=== PATIENT | male | born 1950 | race Hispanic/Latino ===

== ENCOUNTER 2024-09-28 10:13 | Emergency (ER) | payer OTHER, MEDICARE ==
[~2024-09-28] VITALS: Ht 165.1 cm; Wt 56.7 kg
[~2024-09-28 10:13] MED LIST: ATOR10 PO; FERR324T23 PO; FOLI0.8T41 PO; GABA-529 PO; LEVO125T11 PO; LOSA100T59 PO; MIRT-22 PO; MIRT-73 PO; PANT40GR PO
--- NOTE | 2024-09-28 10:21 | ERN ---
General Chief Complaint: Skin Rash/Abscess Stated Complaint: PEG TUBE PROBLEM Time Seen by MD: 10:17 Source: patient, family History of Present Illness Initial Comments PATIENT IS A 74-YEAR-OLD MALE COMING IN TO BE EVALUATED FOR ABDOMINAL DISCOMFORT. PATIENT HAS A PLATELET TUBE IN PLACE AND STATES THAT HE HAS BEEN HAVING THIS DISCOMFORT AROUND THE DECIDED TO COME IN FOR FURTHER EVALUATION. Allergies: Coded Allergies: No Known Allergies (Unverified Allergy, Unknown, 02/19/24) Home Meds Active Scripts Pantoprazole Sodium (Pantoprazole Sodium) 40 Mg , 40 MG PO BID, #60 PA CK Prov:CLEMENCIA HAWTHORNE MD 07/20/24 Reported Medications Mirtazapine (Mirtazapine) 15 Mg Tablet, 1 TAB PO HS for 30 Days, #30 TAB 0 Refills 07/16/24 Losartan Potassium (Losartan Potassium) 100 Mg Tablet, 100 MG PO HS, TAB 07/16/24 Ferrous Gluconate (Ferrous Gluconate) 324 Mg (37.5 Mg Iron) Tablet, 324 MG PO BID, TAB 02/21/24 Folic Acid/Vit Bcomp,C (Renal Vitamin Tablet) 0.8 Mg Tablet, 1 TAB PO DAILY, TAB 02/21/24 Gabapentin (Gabapentin) 100 Mg Capsule, 300 MG PO BID, CAP 02/21/24 Mirtazapine (Mirtazapine) 30 Mg Tab.rapdis, 30 MG PO PM, TAB 02/21/24 Atorvastatin Calcium (LIPITOR) 20 Mg Tab, 20 MG PO HS, TAB 02/21/24 Levothyroxine Sodium (Levothyroxine Sodium) 125 Mcg Tablet, 125 MCG PO DAILY, TAB 02/21/24 Past Medical History Past Medical History: Cancer, Hypertension Medical History Other: NEUROPATHY, RENAL, NASOPHARYNX CA Past Surgical History: Other Surgical History Other: R SHOULDER, KIDNEY SX ROS Dictation CONSTITUTIONAL: NO CHILLS, NO FEVER, NO WEAKNESS, NO DIAPHORESIS, NO MALAISE. HEAD/FACE: NO SIGNS OF TRAUMA. EENT: NO EYE PAIN, NO BLURRED VISION, NO TEARING, NO DOUBLE VISION, NO EAR PAIN, NO EAR DISCHARGE, NO NOSE PAIN, NO NASAL CONGESTION, NO THROAT PAIN, NO THROAT SWELLING, NO MOUTH PAIN. RESPIRATORY: NO COUGH, NO ORTHOPNEA, NO SOB, NO STRIDOR, NO WHEEZING. CARDIOVASCULAR: NO CHEST PAIN, NO EDEMA, NO PALPITATIONS, NO SYNCOPE. GASTROINTESTINAL/ABDOMINAL: ABDOMINAL PAIN, NO CONSTIPATION, NO DIARRHEA, NO NAUSEA, NO VOMITING. GENITOURINARY: NO ABNORMAL DISCHARGE, NO DYSURIA, NO FREQUENT URINATION, NO HEMATURIA. NO COMPLAINTS OF PAIN IN THE GENITALS. MUSCULOSKELETAL: NO BACK PAIN, NO GOUT, NO JOINT PAIN, NO JOINT SWELLING, NO MUSCLE PAIN, NO MUSCLE STIFFNESS, NO NECK PAIN. INTEGUMENTARY: NO CHANGE IN COLOR, NO CHANGE IN HAIR/NAILS, NO DRYNESS, NO LESION, NO LUMPS, NO RASH. NEUROLOGICAL/PSYCH: NO ANXIETY, NOT DEPRESSED, NO EMOTIONAL PROBLEM, NO HEADACHE, NO NUMBNESS, NO PRE-EXISTING DEFICIT, NO HISTORY OF SEIZURES, NO TREMORS, NO WEAKNESS. HEMATOLOGIC/LYMPHATIC: NOT ANEMIC, NO HISTORY OF BLOOD CLOTS, NO APPARENT BLEEDING, NO BRUISING, GLANDS NOT SWOLLEN. ALL SYSTEMS NEGATIVE, EXCEPT NOTED. Physical Exam Physical Exam Dictation VITAL SIGNS: REVIEWED. GENERAL APPEARANCE: ALERT, ORIENTED X3, NO ACUTE DISTRESS, OBESE. HEAD AND FACE: NON-TRAUMATIC. EYES: PERRL, PINK CONJUNCTIVAS, EYELID NO TRAUMA, ANTERIOR CHAMBER CLEAR. EARS: PINNAS INTACT AND NO SIGNS OF TRAUMA OR ERYTHEMA. EAR CANALS CLEAR AND NO DISCHARGE. TMS NO ERYTHEMA. NOSE: NO DISCHARGE, NO BLEEDING. OROPHARYNX: MOUTH NORMAL, TEETH NO CARIES, TONGUE PINK. PHARYNX CLEAR, NO ERYTHEMA. TONSILS NO EXUDATES, NO ABSCESSES NOTED. MUCOUS MEMBRANE MOIST. NECK: SUPPLE, NON-TENDER, NO THYROMEGALY, NO MASSES, NO JVD, NO BRUITS. BREAST: DEFERRED. CHEST: NO TENDERNESS, NO CREPITUS, NO PARADOXICAL MOVEMENT, NO RETRACTIONS. LUNGS: CLEAR, WELL-VENTILATED, SYMMETRIC, NO RALES, NO WHEEZING, NO RHONCHI, NO STRIDOR, GOOD BREATH SOUNDS BILATERALLY. HEART: REGULAR RATE, REGULAR RHYTHM, NO MURMUR, NO GALLOPS. VASCULAR: NO PERIPHERAL EDEMA. ABDOMEN: SOFT, POSITIVE BOWEL SOUNDS, NONDISTENDED, NO GUARDING, TENDER, PEG TUBE IN PLACE MILD ERYTHEMA AT THE BASE, NO REBOUND, NO MASSES NO HEPATOMEGALY, NO SPLENOMEGALY, NO RICE'S SIGN, NO HERNIAS. RECTAL: DEFERRED. GENITAL: DEFERRED. NEUROLOGICAL: NORMAL SPEECH, GROSS MOTOR FUNCTION INTACT, GROSS SENSORY FUNCTION INTACT. MUSCULOSKELETAL: NECK NONTENDER, FULL RANGE OF MOTION, BACK NONTENDER, FULL RANGE OF MOTION. EXTREMITIES: NONTENDER, FULL RANGE OF MOTION. SKIN: COLOR PINK, DRY, NO TURGOR, NO RASH, NO LACERATIONS, NO ABRASIONS, NO CONTUSIONS. LYMPHATICS: DEFERRED. Results Laboratory and Microbiology Labs Reviewed?: Yes EKG/XRAY/US/CT/MRI CT Scan Comment [facility] [address] [place] [address] IMAGING REPORT Signed PATIENT: ISACC MORENO MR#: [id number] : 1950 SEX: M AGE: 74 LOCATION: [facility] ORDER 1030 STATUS: REG REPORT#: [id number] SERVICE 1028 REASON: PEJ TUBE PAIN ORDERING PHYSICIAN: EZRA ROME MD PROCEDURE: CHESTAB WO - CT CHEST ABDOMEN W/O CONTRAST CT CHEST ABDOMEN W/O CONTRAST HISTORY: PEG tube, pain COMPARISON: 07/16/2024 TECHNIQUE: Multiple sequential axial images of the chest were obtained from the thoracic inlet through upper abdomen. Patient was not given contrast through intravenous route. FINDINGS: There is no evidence of pulmonary nodule or parenchymal disease. Mild interstitial fibrotic changes are seen. No pleural effusion or pericardial effusion is seen. There is no evidence of pneumothorax. There are normal size mediastinal and hilar lymph nodes. The heart is not enlarged. Coronary artery calcifications are seen. Degenerative changes of the thoracolumbar spine are present. There is no evidence of adrenal nodule. IMPRESSION: 1. No evidence of pulmonary nodule or effusion is seen. CT CHEST ABDOMEN W/O CONTRAST HISTORY: Pain COMPARISON: None TECHNIQUE: Multiple sequential axial images of the abdomen were obtained from the dome of the diaphragm through iliac crests. Patient was not given contrast through intravenous route. Oral contrast was not given. FINDINGS: No pleural effusion is seen bilaterally. There is no evidence of parenchymal disease or pulmonary nodule of the visualized lower lungs. Degenerative changes are seen of the thoracolumbar spine. Gastrostomy tube is seen with distal tip in the stomach. The liver, spleen, adrenal glands and pancreas are unremarkable. There is no evidence of hydronephrosis bilaterally. Renal vascular calcifications are seen. No evidence of renal stone is seen. Fecal material is seen in the colon. There are normal-sized retroperitoneal and mesenteric lymph nodes. No ascites is seen. Atherosclerotic changes are present. Mild small bowel dilatation is seen. IMPRESSION: 1. Gastrostomy tube is seen with distal tip in the stomach. Mild small bowel dilatation with fluid-filled may be related to enteritis. CT was performed with one or more following dose reduction techniques: automated exposure control, adjustment of the mA and kv according to patient's size, or use of a iterative reconstruction technique. DICTATED BY: KANCHAN MAGANA MD DATE: 09/28/24 1145 ELECTRONICALLY SIGNED BY: KANCHAN MAGANA MD DATE: 09/28/24 1204 [facility] MDM: DIFFERENTIAL DIAGNOSIS: PEG TUBE PROBLEM, LESION, ABSCESS, PATIENT IS A 74-YEAR-OLD MALE COMING IN TO BE EVALUATED FOR ABDOMINAL DISCOMFORT AFTER HE STATES THAT IT WAS PCP A PA PULLED ON HIS PEG TUBE AND POPPED IT OUT. HE WAS THAT HE HAS BEEN HAVING DISCOMFORT SINCE THEN WAS WORRIED FOR INFECTION CAME IN TO BE EVALUATED. ON PHYSICAL EXAM MILD ERYTHEMA AROUND THE STOMA OF THE PEG TUBE PLACEMENT. VITAL SIGNS WITHIN NORMAL LIMITS. CT DID NOT DISCLOSE ANY ABNORMALITIES IN PEG TUBE OR SURROUNDINGS. PATIENT WILL BE DISCHARGED WITH A DIAGNOSIS OF PEG TUBE EVALUATION. I ADVISED HIM APPROPRIATE FOLLOW UP WITH PCP IN 1-2 DAYS. ED Course Orders Procedure Category Date Status Time Cbc With Differential LAB 09/28/24 Logged 10:17 Basic Metabolic Panel LAB 09/28/24 Logged 10:17 Ct Chest Abdomen W/O CT 09/28/24 Resulted Contrast 10:28 Vital Signs Date Time Temp Pulse Resp B/P (MAP) Pulse Ox O2 Delivery O2 Flow Rate FiO2 09/28/24 11:33 97.5 74 18 115/62 97 Room Air* 0 21 09/28/24 10:31 97.5 74 18 115/62 98 Room Air* 0 21 09/28/24 10:15 97.3 94 18 133/90 97 Room Air DX & DISP Disposition: Discharge Departure Impression: Primary Impression: Pain around PEG tube site Additional Impression: Gastroenteritis Condition: Stable Scripts Metronidazole (Flagyl) 375 Mg Capsule 500 MG PO BID for 5 Days, #10 CAP Prov: EZRA ROME MD 09/28/24 Additional Instructions: FOLLOW-UP WITH PRIMARY CARE PROVIDER IN 1 TO 2 DAYS. TAKE MEDICATIONS DIRECTED HERE IN THE EMERGENCY ROOM. OKAY TO CONTINUE HOME MEDICATIONS UNLESS OTHERWISE DISCUSSED DURING YOUR VISIT IN THE EMERGENCY ROOM TODAY. RETURN TO YOUR NEAREST EMERGENCY ROOM IF SYMPTOMS WORSEN OR IF THERE IS NO IMPROVEMENT. CALL 911 IF YOU NEED IMMEDIATE ASSISTANCE. TAKE TYLENOL [id number] NEEDED AND IF NO CONTRAINDICATIONS ARE PRESENT. INCREASE ORAL HYDRATION. A WOUND CULTURE OR URINE CULTURE WAS ORDERED HERE IN THE EMERGENCY ROOM DEPARTMENT PLEASE FOLLOW-UP WITH PRIMARY CARE PROVIDER AND ADVISE THEM TO GET REPEAT PORTS FROM OUR FACILITY. IF YOU HAD ANY FLORES WRAP/SPLINTS THAT WERE APPLIED HERE, PLEASE DO NOT REMOVE THEM UNTIL YOU SEE YOUR PRIMARY CARE OR SPECIALTY. REFERRALS: Referrals: KAITLIN SKAGGS MD (PCP) Time of Disposition: 12:28 EZRA ROME MD Sep 28, 2024 10:21
[2024-09-28 11:33] VITALS: TEMP 97.5
--- NOTE | 2024-09-28 12:04 | HMCIMG ---
CT CHEST ABDOMEN W/O CONTRAST HISTORY: PEG tube, pain COMPARISON: 07/16/2024 TECHNIQUE: Multiple sequential axial images of the chest were obtained from the thoracic inlet through upper abdomen. Patient was not given contrast through intravenous route. FINDINGS: There is no evidence of pulmonary nodule or parenchymal disease. Mild interstitial fibrotic changes are seen. No pleural effusion or pericardial effusion is seen. There is no evidence of pneumothorax. There are normal size mediastinal and hilar lymph nodes. The heart is not enlarged. Coronary artery calcifications are seen. Degenerative changes of the thoracolumbar spine are present. There is no evidence of adrenal nodule. IMPRESSION: 1. No evidence of pulmonary nodule or effusion is seen. CT CHEST ABDOMEN W/O CONTRAST HISTORY: Pain COMPARISON: None TECHNIQUE: Multiple sequential axial images of the abdomen were obtained from the dome of the diaphragm through iliac crests. Patient was not given contrast through intravenous route. Oral contrast was not given. FINDINGS: No pleural effusion is seen bilaterally. There is no evidence of parenchymal disease or pulmonary nodule of the visualized lower lungs. Degenerative changes are seen of the thoracolumbar spine. Gastrostomy tube is seen with distal tip in the stomach. The liver, spleen, adrenal glands and pancreas are unremarkable. There is no evidence of hydronephrosis bilaterally. Renal vascular calcifications are seen. No evidence of renal stone is seen. Fecal material is seen in the colon. There are normal-sized retroperitoneal and mesenteric lymph nodes. No ascites is seen. Atherosclerotic changes are present. Mild small bowel dilatation is seen. IMPRESSION: 1. Gastrostomy tube is seen with distal tip in the stomach. Mild small bowel dilatation with fluid-filled may be related to enteritis. CT was performed with one or more following dose reduction techniques: automated exposure control, adjustment of the mA and kv according to patient's size, or use of a iterative reconstruction technique.
[2024-09-28 12:26] VITALS: BP 118/67; PULSE 71; RESP 16; O2SAT 96
[2024-09-28] MEDS ORDERED: METR375C2 PO (12:29)
== END 2024-09-28 12:38 | disposition home or self-care (01) ==
LOC: EDH 10:13
DX: T85.848A Pain due to other internal prosthetic devices, implants and grafts, initial encounter (principal); K52.9 Noninfective gastroenteritis and colitis, unspecified; I10 Essential (primary) hypertension; Z79.890 Hormone replacement therapy; Z79.899 Other long term (current) drug therapy; Z85.818 Personal history of malignant neoplasm of other sites of lip, oral cavity, and pharynx; Z93.1 Gastrostomy status; Y83.8 Other surgical procedures as the cause of abnormal reaction of the patient, or of later complication, without mention of misadventure at the time of the procedure; Y92.89 Other specified places as the place of occurrence of the external cause
CPT/HCPCS: 71250; 74150; 99284

== ENCOUNTER 2025-02-21 10:14 | Emergency (ER) | payer MEDICARE, OTHER ==
[~2025-02-21] VITALS: Ht 165.1 cm; Wt 63.0 kg
[~2025-02-21 10:14] MED LIST changes: +METR375C2 PO
[2025-02-21 10:15] VITALS: TEMP 97.8
--- NOTE | 2025-02-21 10:21 | NUR ---
PT JUST PLACED IN MY ED BED 13
[2025-02-21 10:49] LABS: BASOPHILS # (AUTO) 0.03 K/uL (0.00-0.20); BASOPHILS % (AUTO) 0.5 % (0.0-5.0); EOSINOPHILS # (AUTO) 0.04 K/uL (0.00-0.70); EOSINOPHILS % (AUTO) 0.6 % (0.0-8.0); HEMATOCRIT 32.7 % (42-54); IMMATURE GRANULOCYTE ABSOLUTE 0.02 K/uL (0-1); LYMPHOCYTES # (AUTO) 0.9 K/uL (1.0-4.8); LYMPHOCYTES % (AUTO) 14.1 % (21.0-51.0); MEAN CORPUSCULAR VOLUME 87.7 fL (79-99); MONOCYTES # (AUTO) 0.7 K/uL (0.1-1.0); MONOCYTES % (AUTO) 10.4 % (3.0-13.0); NEUTROPHILS # (AUTO) 4.9 K/uL (1.8-7.7); NEUTROPHILS % (AUTO) 74.1 % (40.0-77.0); PLATELET COUNT (AUTO) 230 K/uL (130-400); RED BLOOD CELL COUNT(AUTO) 3.73 MIL/uL (4.50-6.20); RED CELL DISTRIBUTION WIDTH 18.8 % (11.0-15.5); WHITE BLOOD COUNT (AUTO) 6.7 K/uL (4.8-10.8)
--- NOTE | 2025-02-21 11:01 | NUR ---
CONSENT OBTAINED FOR CT W/IV CONTRAST
[2025-02-21 11:06] LABS: CREATININE 1.7 mg/dL (0.5-1.3); POTASSIUM 4.4 mmol/L (3.5-5.1)
[2025-02-21 11:11] LABS: ALBUMIN 3.5 g/dL (3.5-5.0); BILIRUBIN,DIRECT 0.1 mg/dL (0.0-0.3); BILIRUBIN,TOTAL 0.3 mg/dL (0.2-1.0); TOTAL PROTEIN, SERUM 7.5 g/dL (6.0-8.3)
[2025-02-21] MEDS ORDERED: DIATR MEGLU/DIATRIZOATE SODIUM 30 ML BOTTLE ONE (11:18)
--- NOTE | 2025-02-21 11:23 | HMCIMG ---
Exam Type: ABD 1VW Clinical Information: Verify G-tube placement Comparison: None Findings: XR Eval Gastrostomy Perc W/ Contrast TECHNIQUE: Single view of the abdomen was obtained. 30 cc of Gastrografin injected through the gastric tube. Contrast outlines the stomach and small bowel. There is no evidence of extravasation. Bowel gas pattern is otherwise unremarkable. IMPRESSION: Gastric tube in good position within the stomach.
--- NOTE | 2025-02-21 11:44 | NUR ---
PT CURRENTLY EN-ROUTE TO CT SCAN VIA STRETCHER BY [facility] [employer] KARLA
[2025-02-21] MEDS: hydrALAZine 20MG/ML VIAL IV ONE (12:18)
--- NOTE | 2025-02-21 12:18 | HMCIMG ---
Exam Type: CT ABD/PEL WO CON RENAL/APPY Clinical Information: LLQ PAIN, PEG PLACEMENT Comparison: None Contrast: 100 cc's Isovue 370 IV, no complications or adverse reactions CT Dose Index (CTDI): 31.60 mGy Dose Length Product (DLP): 1740.80 total mGy-cm Findings: Bilateral renal atrophy. Bilateral renal vascular calcifications and nonobstructing nephrolithiasis. No residual or recurrent renal tumor identified. The lung bases are clear. Stomach is unremarkable except for the presence of a PEG tube. The spleen is unremarkable. It is not enlarged. The pancreas shows normal anatomy. It is not fatty replaced. It shows no lesions. The pancreatic duct is not dilated. The gallbladder is unremarkable. It shows no cholelithiasis. The gallbladder wall is normal in thickness. There is no pericholecystic fluid. The is no acute or chronic inflammation noted. The adrenal glands are unremarkable. There is no enlargement. No lesions are noted. The liver is unremarkable. It shows no focal masses. The appendix is unremarkable. It shows no evidence of inflammation. No appendicolith is seen. The small bowel is unremarkable. There is no evidence of dilatation to suggest obstruction. No evidence of adynamic ileus is seen. There is no small bowel wall thickening to suggest enteritis. The colon is unremarkable. The urinary bladder is unremarkable. There is no wall thickening to suggest tumor or inflammation. There are no intraluminal calculi. There are no diverticula. There is no evidence of chronic bladder outlet obstruction. There is no evidence of urinary bladder distention to suggest urinary retention. The other pelvic structures are unremarkable. The bony and vascular structures are unremarkable for the patient's age. 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 No acute pathology. Other chronic findings as noted. This study was performed using dose reduction techniques to include automated exposure control and/or adjustment of the mA and/or kV according to patient size.
[2025-02-21 13:53] LABS: APPEARANCE,URINE CLEAR (CLEAR); BILIRUBIN,URINE NEGATIVE (NEGATIVE); COLOR,URINE LIGHT-YELLOW (YELLOW); GLUCOSE, URINE (UA) NEGATIVE (NEGATIVE); KETONES,URINE NEGATIVE (NEGATIVE); LEUKOCYTE ESTERASE ,URINE NEGATIVE Leu/uL (NEGATIVE); NITRATE,URINE NEGATIVE (NEGATIVE); OCCULT BLOOD,URINE NEGATIVE (NEGATIVE); PH,URINE 7.5 (5.0-8.0); PROTEIN,URINE 100 mg/dL (NEGATIVE); UROBILINOGEN,URINE 0.2 mg/dL (0.2-1.0)
[2025-02-21 14:04] VITALS: O2SAT 97
[2025-02-21 14:24] LABS: WBC,URINE 0-1 /HPF (0-1)
[2025-02-21 14:25] LABS: BACTERIA,URINE None Seen /HPF (None Seen)
[2025-02-21 14:35] VITALS: BP 160/92; PULSE 70; RESP 13
[2025-02-21] MEDS: morPHINE 2 MG SYG IVP ONE (14:48)
[2025-02-21] MEDS ORDERED: TAMS-55 PO (14:52)
--- NOTE | 2025-02-21 14:53 | ERN ---
General Chief Complaint: Abdominal Pain Stated Complaint: G TUBE ISSUE Time Seen by MD: 10:21 Time Seen by Midlevel: 10:21 Source: patient History of Present Illness Initial Comments 74-year-old male who presents to the emergency department due to abdominal pain. The patient was at [facility] and had G-tube replaced. Patient was referred to the ED to verify tube placement and due to the abdominal pain. Patient denies nausea, vomiting, fever, dysuria or further associated symptoms. Patient has a history of constipation. PMHx cancer, neuropathy, CKD Allergies: Coded Allergies: No Known Allergies (Unverified Allergy, Unknown, 02/19/24) Home Meds Active Scripts Tamsulosin HCl (Flomax) 0.4 Mg Cap.er.24h, 1 CAP PO DAILY for 7 Days, #7 CAP 0 Refills Prov:CEASAR ROBERT 02/21/25 Metronidazole (Flagyl) 375 Mg Capsule, 500 MG PO BID for 5 Days, #10 CAP Prov:EZRA ROME MD 09/28/24 Pantoprazole Sodium (Pantoprazole Sodium) 40 Mg Granpkt.dr, 40 MG PO BID, #60 PACK Prov:CLEMENCIA HAWTHORNE MD 07/20/24 Reported Medications Mirtazapine (Mirtazapine) 15 Mg Tablet, 1 TAB PO HS for 30 Days, #30 TAB 0 Refil ls 07/16/24 Losartan Potassium (Losartan Potassium) 100 Mg Tablet, 100 MG PO HS, TAB 07/16/24 Ferrous Gluconate (Ferrous Gluconate) 324 Mg (37.5 Mg Iron) Tablet, 324 MG PO BID, TAB 02/21/24 Folic Acid/Vit Bcomp,C (Renal Vitamin Tablet) 0.8 Mg Tablet, 1 TAB PO DAILY, TAB 02/21/24 Gabapentin (Gabapentin) 100 Mg Capsule, 300 MG PO BID, CAP 02/21/24 Mirtazapine (Mirtazapine) 30 Mg Tab.rapdis, 30 MG PO PM, TAB 02/21/24 Atorvastatin Calcium (LIPITOR) 20 Mg Tab, 20 MG PO HS, TAB 02/21/24 Levothyroxine Sodium (Levothyroxine Sodium) 125 Mcg Tablet, 125 MCG PO DAILY, TAB 02/21/24 Past Medical History Past Medical History: Cancer Medical History Other: NEUROPATHY, RENAL, NASOPHARYNX CA, G TUBE Past Surgical History: Other Surgical History Other: BACK SX ROS Dictation Constitutional: Negative for fever,chills, and weight loss Eyes: Negative for injury, pain,redness, and discharge ENT: Negative for injury,pain or swelling Cardiovascular: Negative for chest pain, palpitations, and edema Respiratory: Negative for shortness of breath, cough, and wheezing, Abdomen/GI: Positive for abdominal pain Negative for nausea, vomiting, diarrhea, and constipation Back: Negative for injury and pain : Negative for painful urination, bleeding or discharge MS/Extremity: Negative for injury and deformity Skin: Negative for rash, and discoloration Neuro: Negative for headache, weakness, numbness, tingling, and seizure Psych: Negative for suicide ideation, homicidal ideation, and hallucinations Physical Exam Physical Exam Dictation General: awake, alert, no acute distress Head/Face: Normocephalic, atraumatic Eyes: PERRL, EOMI, normal conjuctiva ENT: oral cavity clear, TMs clear, oral mucosa moist Neck: Supple, normal range of motion Cardiovascular: RRR, normal S1/S2 Respiratory: CTAB, no respiratory distress, no rales or wheezes Abdomen: Soft, non-tender, non-distended, normal bowel sounds, no guarding or rebound. Skin: Warm, dry, normal turgor, no rash MS/Extremity: Pulses equal, no cyanosis, neurovascular intact, FROM Neuro: COAx4, GCS 15, strength 5/5, CN 2-12 intact, normal cerebellar exam, normal gait, Psych: Normal behavior, mood, and affect normal Results Laboratory and Microbiology Lab and Micro Result Laboratory Tests Test 02/21/25 10:35 02/21/25 13:07 White Blood Count 6.7 K/uL (4.8-10.8) Red Blood Count 3.73 MIL/uL (4.50-6.20) L Hemoglobin 10.8 g/dL (14.0-18.0) L Hematocrit 32.7 % (42-54) L Mean Corpuscular Volume 87.7 fL (79-99) Mean Corpuscular Hemoglobin 29.0 pg (27.0-33.0) Mean Corpuscular Hemoglobin Concent 33.0 g/dL (32.0-36.0) Red Cell Distribution Width 18.8 % (11.0-15.5) H Platelet Count 230 K/uL (130-400) Mean Platelet Volume 10.0 fL (7.5-10.5) Immature Granulocyte % (Auto) 0.3 % (0-1) Neutrophils (%) (Auto) 74.1 % (40.0-77.0) Lymphocytes (%) (Auto) 14.1 % (21.0-51.0) L Monocytes (%) (Auto) 10.4 % (3.0-13.0) Eosinophils (%) (Auto) 0.6 % (0.0-8.0) Basophils (%) (Auto) 0.5 % (0.0-5.0) Neutrophils # (Auto) 4.9 K/uL (1.8-7.7) Lymphocytes # (Auto) 0.9 K/uL (1.0-4.8) L Monocytes # (Auto) 0.7 K/uL (0.1-1.0) Eosinophils # (Auto) 0.04 K/uL (0.00-0.70) Basophils # (Auto) 0.03 K/uL (0.00-0.20) Absolute Immature Granulocyte (auto 0.02 K/uL (0-1) Nucleated Red Blood Cells 0.0 % (0.0-0.19) Red Blood Cell Morphology See comments Sodium Level 134 mmol/L (136-145) L Potassium Level 4.4 mmol/L (3.5-5.1) Chloride Level 100 mmol/L (101-111) L Carbon Dioxide Level 28 mmol/L (21-32) Blood Urea Nitrogen 29 mg/dL (7-18) H Creatinine 1.7 mg/dL (0.5-1.3) H Glomerular Filtration Rate Calc 42 mL/min (>90) Random Glucose 88 mg/dL (70-105) Total Calcium 8.8 mg/dL (8.5-10.1) Total Bilirubin 0.3 mg/dL (0.2-1.0) Direct Bilirubin 0.1 mg/dL (0.0-0.3) Aspartate Amino Transf (AST/SGOT) 21 U/L (10-37) Alanine Aminotransferase (ALT/SGPT) 31 U/L (12-78) Alkaline Phosphatase 138 U/L (50-136) H Total Protein 7.5 g/dL (6.0-8.3) Albumin 3.5 g/dL (3.5-5.0) Lipase 47 U/L (16-77) Urine Color LIGHT-YELLOW (YELLOW) Urine Appearance CLEAR (CLEAR) Urine pH 7.5 (5.0-8.0) Urine Specific [place] 1.007 (1.001-1.031) Urine Protein 100 mg/dL (NEGATIVE) H Urine Glucose (UA) NEGATIVE mg/dL (NEGATIVE) Urine Ketones NEGATIVE mg/dL (NEGATIVE) Urine Occult Blood NEGATIVE (NEGATIVE) Urine Nitrate NEGATIVE (NEGATIVE) Urine Bilirubin NEGATIVE mg/dL (NEGATIVE) Urine Urobilinogen 0.2 mg/dL (0.2-1.0) Urine Leukocyte Esterase NEGATIVE Taz/uL Urine RBC 2-5 /HPF (0-1) H Urine WBC 0-1 /HPF (0-1) Urine Bacteria None Seen /HPF (None Seen) Labs Reviewed?: Yes EKG/XRAY/US/CT/MRI X-RAY Comment REASON: Verify G-tube placement ORDERING PHYSICIAN: CEASAR ROBERT PROCEDURE: ABD 1VW - ABD 1VW Exam Type: ABD 1VW Clinical Information: Verify G-tube placement Comparison: None Findings: XR Eval Gastrostomy Perc W/ Contrast TECHNIQUE: Single view of the abdomen was obtained. 30 cc of Gastrografin injected through the gastric tube. Contrast outlines the stomach and small bowel. There is no evidence of extravasation. Bowel gas pattern is otherwise unremarkable. IMPRESSION: Gastric tube in good position within the stomach. DICTATED BY: ANASTACIO MARIN MD DATE: 02/21/[address] Scan Comment REASON: LLQ PAIN, PEG PLACEMENT ORDERING PHYSICIAN: CEASAR ROBERT PROCEDURE: ABD PELVWO - CT ABD/PEL WO CON RENAL/APPY Exam Type: CT ABD/PEL WO CON RENAL/APPY Clinical Information: LLQ PAIN, PEG PLACEMENT Comparison: None Contrast: 100 cc's Isovue 370 IV, no complications or adverse reactions CT Dose Index (CTDI): 31.60 mGy Dose Length Product (DLP): 1740.80 total mGy-cm Findings: Bilateral renal atrophy. Bilateral renal vascular calcifications and nonobstructing nephrolithiasis. No residual or recurrent renal tumor identified. The lung bases are clear. Stomach is unremarkable except for the presence of a PEG tube. The spleen is unremarkable. It is not enlarged. The pancreas shows normal anatomy. It is not fatty replaced. It shows no lesions. The pancreatic duct is not dilated. The gallbladder is unremarkable. It shows no cholelithiasis. The gallbladder wall is normal in thickness. There is no pericholecystic fluid. The is no acute or chronic inflammation noted. The adrenal glands are unremarkable. There is no enlargement. No lesions are noted. The liver is unremarkable. It shows no focal masses. The appendix is unremarkable. It shows no evidence of inflammation. No appendicolith is seen. The small bowel is unremarkable. There is no evidence of dilatation to suggest obstruction. No evidence of adynamic ileus is seen. There is no small bowel wall thickening to suggest enteritis. The colon is unremarkable. The urinary bladder is unremarkable. There is no wall thickening to suggest tumor or inflammation. There are no intraluminal calculi. There are no diverticula. There is no evidence of chronic bladder outlet obstruction. There is no evidence of urinary bladder distention to suggest urinary retention. The other pelvic structures are unremarkable. The bony and vascular structures are unremarkable for the patient's age. 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 No acute pathology. Other chronic findings as noted. This study was performed using dose reduction techniques to include automated exposure control and/or adjustment of the mA and/or kV according to patient size. DICTATED BY: ANASTACIO MARIN MD DATE: 02/21/251212 [facility] MDM: Differential diagnosis: Rationale: 74-year-old male who presents to the emergency department due to abdominal pain. The patient was at [place] [facility] and had G- tube replaced. Patient was referred to the ED to verify tube placement and due to the abdominal pain. Patient denies nausea, vomiting, fever, dysuria or further associated symptoms. Patient has a history of constipation. PMHx cancer, neuropathy, CKD Labs obtained indicated mild anemia with hemoglobin of 10.8, hyponatremia at 134, hypochloremia 100, BUN 29 creatinine 1.7 consistent with chronic kidney disease. UA negative for urinary tract infection. Abdominal x-ray obtained indicating gastric tube in good position within the stomach. CT abdomen and pelvis indicates bilateral renal atrophy with renal vascular calcifications and nonobstructing nephrolithiasis otherwise no acute findings. The patient was administered morphine and hydralazine in the ED. he was educated on findings and diagnosis. Advised to follow up with PCP. Return to the emergency department if any worsening symptoms. Patient verbalized understanding. Patient stable for discharge. There are no social concerns with this patient. I independently interpreted the test that were performed, results were reviewed by me and considered findings on radiology if ordered. Medical management and examination interpretation discussions were had by me with other qualified healthcare professionals as indicated for the patient's care. ED Course Orders Procedure Category Date Status Time Cbc With Differential LAB 02/21/25 Complete 10:28 Basic Metabolic Panel LAB 02/21/25 Complete 10:28 Lipase LAB 02/21/25 Complete 10:28 Urinalysis LAB 02/21/25 Complete W/Microscopic 10:28 Hepatic Function Panel LAB 02/21/25 Complete 10:28 Abd 1vw RAD 02/21/25 Resulted 10:30 Diatr PHA 02/21/25 Complete Meglu/Diatrizoate 11:18 Ct Abd/Pel Wo Con CT 02/21/25 Resulted Renal/Appy 11:35 Morphine 2mg Syg PHA 02/21/25 Complete (Morphine 2mg Syg) 12:30 Hydralazine 20mg Inj PHA 02/21/25 Complete (Apresoline 20mg In 12:30 Current Medications Medications (Trade) Dose Ordered Sig/Deanna Route PRN Reason Start Time Stop Time Status Last Admin Dose Admin Diatrizoate Meglum/ Diatrizoate Sod (Gastrografin 66-10 Solution) 30 ml STK-MED ONCE .ROUTE 02/21/25 11:18 02/21/25 11:18 DC Hydralazine HCl (APRESOLine 20MG INJ) 10 mg ONCE ONCE IV 02/21/25 12:30 02/21/25 12:31 DC 02/21/25 12:18 Morphine Sulfate (morPHINE 2MG SYG) 2 mg ONCE ONCE IVP 02/21/25 12:30 02/21/25 12:31 DC 02/21/25 14:48 Vital Signs Date Time Temp Pulse Resp B/P (MAP) Pulse Ox O2 Delivery O2 Flow Rate FiO2 02/21/25 14:35 70 13 160/92 Room Air* 0 02/21/25 14:04 73 12 165/96 97 Room Air* 0 21 02/21/25 12:16 55 11 197/101 97 Room Air* 0 02/21/25 10:15 97.9 60 12 176/101 96 0 DX & DISP Disposition: Discharge Departure Impression: Primary Impression: Nephrolithiasis Additional Impression: Gastrostomy tube in place Condition: Stable Scripts Tamsulosin HCl (Flomax) 0.4 Mg Cap.er.24h 1 CAP PO DAILY for 7 Days, #7 CAP 0 Refills Prov: CEASAR ROBERT 02/21/25 Additional Instructions: Discharge home. Rest. Follow up with primary care DrIzabella in 24 hours. Return to the ER for any acute changes or worsening symptoms. If any medications were prescribed take as directed. Okay to continue home medications unless otherwise discussed during your visit in the emergency room today. Patient was also advised to follow-up with primary care physician in 1 to 2 days for continued monitoring. Referrals: KAITLIN KSAGGS MD (PCP) I performed the substantive portion of the visit. I have reviewed and personally made and approve the management plan that is documented in the notes by myself or the ALMAS. I acknowledge full responsibility for the patient's management plan. CEASAR ROBERT Feb 21, 2025 14:53
== END 2025-02-21 15:09 | disposition home or self-care (01) ==
LOC: EDH 10:14
DX: N20.0 Calculus of kidney (principal); Z46.59 Encounter for fitting and adjustment of other gastrointestinal appliance and device; Z79.890 Hormone replacement therapy; Z79.899 Other long term (current) drug therapy; Z93.1 Gastrostomy status; Z98.890 Other specified postprocedural states
CPT/HCPCS: 99285; 74176; 96374; 96375; 80076; 80048; 83690; 85025; 81001; 36415; 74018; Q9963; J2270; J0360

== ENCOUNTER 2025-05-23 00:09 | Emergency (ER) | payer OTHER, MEDICARE ==
[~2025-05-23] VITALS: Ht 165.1 cm; Wt 65.8 kg
[~2025-05-23 00:09] MED LIST changes: +TAMS-55 PO
--- NOTE | 2025-05-23 00:15 | NUR ---
UA CUP PROVIDED
--- NOTE | 2025-05-23 00:16 | NUR ---
UA COLLECTED AND SENT
--- NOTE | 2025-05-23 00:16 | NUR ---
JIAN ALVES MADE AWARE OF PENDING EKG
--- NOTE | 2025-05-23 00:18 | NUR ---
PT WITH RADIOLOGY
[2025-05-23 00:37] LABS: ADD UA MICROSCOPIC YES; APPEARANCE,URINE CLEAR (CLEAR); GLUCOSE, URINE (UA) NEGATIVE (NEGATIVE); LEUKOCYTE ESTERASE ,URINE NEGATIVE Leu/uL (NEGATIVE); NITRATE,URINE NEGATIVE (NEGATIVE); OCCULT BLOOD,URINE NEGATIVE (NEGATIVE)
[2025-05-23 00:38] LABS: IMMATURE GRANULOCYTE ABSOLUTE 0.01 K/uL (0-1); NUCLEATED RED BLOOD CELLS 0.0 % (0.0-0.19); PLATELET COUNT (AUTO) 216 K/uL (130-400); RED BLOOD CELL COUNT(AUTO) 3.21 MIL/uL (4.50-6.20); RED CELL DISTRIBUTION WIDTH 16.6 % (11.0-15.5); WHITE BLOOD COUNT (AUTO) 6.9 K/uL (4.8-10.8)
[2025-05-23 00:47] LABS: CREATININE 2.2 mg/dL (0.5-1.3); GLOMERULAR FILTR. RATE CALC 31.0 mL/min (>90); GLUCOSE,RANDOM 90.0 mg/dL (70-105); SODIUM SERUM 130.0 mmol/L (136-145); UREA NITROGEN, BLOOD 38.0 mg/dL (7-18)
[2025-05-23 00:53] LABS: CREATINE KINASE, TOTAL 109.0 U/L (21-232)
--- NOTE | 2025-05-23 01:00 | NUR ---
ASSUMED PT CARE
[2025-05-23] MEDS: 0.9%NACL 1000ML 1,000 ML IV ONE (01:11)
--- NOTE | 2025-05-23 01:16 | HMCIMG ---
EXAM: CR Chest, 1 view CLINICAL HISTORY: Chest pain. COMPARISON: Chest radiograph dated 07/16/2024. FINDINGS: The right-sided Mediport catheter tip overlies the distal SVC. Subsegmental atelectasis in the left lung base. The lungs show no infiltrates or other acute findings. No pleural effusion or pneumothorax. The cardiomediastinal silhouette is within normal limits. No acute osseous abnormality. IMPRESSION: The right-sided Mediport catheter tip overlies the distal SVC. Subsegmental atelectasis in the left lung base. No acute cardiopulmonary process is evident. Compared to the prior study, there is no significant interval change. /[place]
--- NOTE | 2025-05-23 01:31 | ERN ---
General Chief Complaint: Chest Pain Stated Complaint: EPIGASTRIC PAIN, CP Time Seen by MD: 00:13 Time Seen by Midlevel: 00:13 Source: patient History of Present Illness Initial Comments The patient is a 74-year-old male with a history of hypertension, hyperlipidemia, and thyroid disorder presenting to the emergency department for evaluation of chest pain has been intermittent the last couple of days. Allergies: Coded Allergies: No Known Allergies (Unverified Allergy, Unknown, 02/19/24) Home Meds Active Scripts Tamsulosin HCl (Flomax) 0.4 Mg Cap.er.24h, 1 CAP PO DAILY for 7 Days, #7 CAP 0 Refills Prov:CEASAR ROBERT 02/21/25 Metronidazole (Flagyl) 375 Mg Capsule, 500 MG PO BID for 5 Days, #10 CAP Prov:EZRA ROME MD 09/28/24 Pantoprazole Sodium (Pantoprazole Sodium) 40 Mg Granpkt.dr, 40 MG PO BID, #60 PACK Prov:CLEMENCIA HAWTHORNE MD 07/20/24 Reported Medications Mirtazapine (Mirtazapine) 15 Mg Tablet, 1 TAB PO HS for 30 Days, #30 TAB 0 Refills 07/16/24 Losartan Potassium (Losartan Potassium) 100 Mg Tablet, 100 MG PO HS, TAB 07/16/24 Ferrous Gluconate (Ferrous Gluconate) 324 Mg (37.5 Mg Iron) Tablet, 324 MG PO BID, TAB 02/21/24 Folic Acid/Vit Bcomp,C (Renal Vitamin Tablet) 0.8 Mg Tablet, 1 TAB PO DAILY, TAB 02/21/24 Gabapentin (Gabapentin) 100 Mg Capsule, 300 MG PO BID, CAP 02/21/24 Mirtazapine (Mirtazapine) 30 Mg Tab.rapdis, 30 MG PO PM, TAB 02/21/24 Atorvastatin Calcium (LIPITOR) 20 Mg Tab, 20 MG PO HS, TAB 02/21/24 Levothyroxine Sodium (Levothyroxine Sodium) 125 Mcg Tablet, 125 MCG PO DAILY, TAB 02/21/24 Past Medical History Past Medical History: Cancer, Hypertension Medical History Other: NEUROPATHY, RENAL, NASOPHARYNX CA, G TUBE, " NECK CANCER" REMISSION Past Surgical History: Other Surgical History Other: BACK SX ROS Dictation CONSTITUTIONAL: Negative except for HPI HEAD/FACE: Negative except for HPI EENT: Negative except for HPI RESPIRATORY: Negative except for HPI GASTROINTESTINAL/ABDOMINAL: Negative except for HPI GENITOURINARY: Negative except for HPI MUSCULOSKELETAL: Negative except for HPI INTEGUMENTARY: Negative except for HPI NEUROLOGICAL/PSYCH: Negative except for HPI HEMATOLOGIC/LYMPHATIC: Negative except for HPI All Systems Negative, Except as noted above. 13 point review of systems assessed and all negative except for above. Physical Exam Physical Exam Dictation Vital Signs reviewed General Appearance: Alert, oriented x 3, no acute distress, well developed, nourished. Head and Face: non-traumatic. Eyes: PERRL, pink conjunctivas, eyelid no trauma, anterior chamber with arcus senilis. Ears: Pinnas intact and no signs of trauma or erythema ear canals clear and no discharge TM no erythema Nose: No discharge, no bleeding. Oropharynx: Mouth normal, tongue pink, pharynx clear,no erythema, tonsils no exudates, no abscesses noted, mucous membrane moist Neck: Supple, non-tender, no thyromegaly, no masses, no JVD, no bruits Breast:Deferred Chest:No tenderness, no crepitus, no paradoxical movement, no retractions Lungs:Clear, well-ventilated, symmetric, no rales, no wheezing, no rhonchi, no stridor, good breath sounds bilaterally Heart: Regular rate, regular rhythm, no murmur, no gallops Vascular: no peripheral edema, Abdomen: Soft, positive bowel sounds, nondistended, no guarding, nontender, no rebound, no masses no hepatomegaly, no splenomegaly, no Márquez's sign, no hernias. Rectal: Deferred Genital: Deferred Neurological: Normal speech, motor function intact, sensory function intact Musculoskeletal: Neck nontender, full range of motion, back nontender, full range of motion, Extremities: nontender, full range of motion Skin: Color pink, dry, no turgor, no rash, no lacerations, no abrasions, no contusions. Lymphatic: Deferred Results Laboratory and Microbiology Lab and Micro Result Laboratory Tests Test 05/23/25 00:16 05/23/25 00:30 05/23/25 03:17 Urine Color LIGHT-YELLOW (YELLOW) Urine Appearance CLEAR (CLEAR) Urine pH 7.0 (5.0-8.0) Urine Specific [place] 1.007 (1.001-1.031) Urine Protein 100 mg/dL (NEGATIVE) H Urine Glucose (UA) NEGATIVE mg/dL (NEGATIVE) Urine Ketones NEGATIVE mg/dL (NEGATIVE) Urine Occult Blood NEGATIVE (NEGATIVE) Urine Nitrate NEGATIVE (NEGATIVE) Urine Bilirubin NEGATIVE mg/dL (NEGATIVE) Urine Urobilinogen 0.2 mg/dL (0.2-1.0) Urine Leukocyte Esterase NEGATIVE Taz/uL Urine RBC 0-1 /HPF (0-1) Urine WBC 2-5 /HPF (0-1) H Urine Bacteria None /HPF (None Seen) White Blood Count 6.9 K/uL (4.8-10.8) Red Blood Count 3.21 MIL/uL (4.50-6.20) L Hemoglobin 9.8 g/dL (14.0-18.0) L Hematocrit 28.0 % (42-54) L Mean Corpuscular Volume 87.2 fL (79-99) Mean Corpuscular Hemoglobin 30.5 pg (27.0-33.0) Mean Corpuscular Hemoglobin Concent 35.0 g/dL (32.0-36.0) Red Cell Distribution Width 16.6 % (11.0-15.5) H Platelet Count 216 K/uL (130-400) Mean Platelet Volume 10.8 fL (7.5-10.5) H Immature Granulocyte % (Auto) 0.1 % (0-1) Neutrophils (%) (Auto) 75.3 % (40.0-77.0) Lymphocytes (%) (Auto) 11.3 % (21.0-51.0) L Monocytes (%) (Auto) 11.1 % (3.0-13.0) Eosinophils (%) (Auto) 1.6 % (0.0-8.0) Basophils (%) (Auto) 0.6 % (0.0-5.0) Neutrophils # (Auto) 5.2 K/uL (1.8-7.7) Lymphocytes # (Auto) 0.8 K/uL (1.0-4.8) L Monocytes # (Auto) 0.8 K/uL (0.1-1.0) Eosinophils # (Auto) 0.11 K/uL (0.00-0.70) Basophils # (Auto) 0.04 K/uL (0.00-0.20) Absolute Immature Granulocyte (auto 0.01 K/uL (0-1) Nucleated Red Blood Cells 0.0 % (0.0-0.19) Sodium Level 130 mmol/L (136-145) L Potassium Level 4.4 mmol/L (3.5-5.1) Chloride Level 96 mmol/L (101-111) L Carbon Dioxide Level 28 mmol/L (21-32) Blood Urea Nitrogen 38 mg/dL (7-18) H Creatinine 2.2 mg/dL (0.5-1.3) H Glomerular Filtration Rate Calc 31 mL/min (>90) Random Glucose 90 mg/dL (70-105) Total Calcium 8.1 mg/dL (8.5-10.1) L Total Creatine Kinase 109 U/L (21-232) # Troponin I High Sensitivity 10 ng/L (4-75) 20 ng/L (4-75) Labs Reviewed?: Yes MDM MDM: Differential diagnosis: Acute ID, anxiety, dehydration, GERD, upper respiratory tract infection Rationale: Tests considered and ordered secondary to shared decision making include: Previous outside records reviewed: Old ER visits. Risk of complication and/or morbidity or mortality of patient management: None Medications-Per medication reconciliation Need for hospitalization: Patient does meet criteria for hospitalization. Need for emergency major/minor surgery: No There are no social concerns with this patient. Prescription drug management Prescriptions will include symptomatic care Patient's prior external medical records from other ER visits were reviewed by me as indicated. Prior testing and results from previous visits were reviewed. Prior tests were taken into account with medical decision making and resource utilization, independent historian/historians were used to obtain complete medical history. I independently interpreted the test that were performed, results were reviewed by me and considered findings on radiology if ordered. Patient's CBC shows a normal white blood cell count. Chemistry panel is also normal. Sequential troponins are low. Patient is stable for discharge. ED Course Orders Procedure Category Date Status Time Vital Signs Per CPOE 05/23/25 Transmitted Routine 00:11 Chest 1vw RAD 05/23/25 Resulted 00:11 12 Lead Ekg Tracing- EKG 05/23/25 Logged Technical 00:11 Oxygen By Nc/Pulse Ox CPOE 05/23/25 Transmitted 00:11 Maintain Iv CPOE 05/23/25 Transmitted 00:11 Iv Insertion CPOE 05/23/25 Transmitted 00:11 Cardiac Monitoring CPOE 05/23/25 Transmitted 00:11 Pulse Oximetry With CPOE 05/23/25 Transmitted Vs And Prn 00:11 Cbc With Differential LAB 05/23/25 Complete 00:11 Activity: Br W/Brp CPOE 05/23/25 Transmitted With Assist 00:11 Creatine Kinase, Total LAB 05/23/25 Complete 00:11 Troponin I High LAB 05/23/25 Complete Sensitivity 00:11 Urinalysis Profile LAB 05/23/25 Complete 00:11 Basic Metabolic Panel LAB 05/23/25 Complete 00:11 0.9%Nacl 1000ml (Ns PHA 05/23/25 Complete 1000ml) 01:30 Troponin I High LAB 05/23/25 Complete Sensitivity 01:31 Current Medications Medications (Trade) Dose Ordered Sig/Deanna Route PRN Reason Start Time Stop Time Status Last Admin Dose Admin Sodium Chloride 1,000 ml @ 0 mls/hr ONCE ONCE IV 05/23/25 01:30 05/23/25 01:31 DC 05/23/25 01:11 Vital Signs Date Time Temp Pulse Resp B/P (MAP) Pulse Ox O2 Delivery O2 Flow Rate FiO2 05/23/25 00:10 96.3 78 16 151/85 97 Room Air DX & DISP Disposition: Discharge Departure Impression: Primary Impression: Chest pain due to GERD Condition: Stable Additional Instructions: You came in with concerns of chest pain the studies we have done today have ruled out a cardiac cause. If you continue to have this pain please follow-up with her primary care physician. Referrals: KAITLIN SKAGGS MD (PCP) I have reviewed the case, and I agree with, Diagnosis and Plan I performed the substantive portion of the visit. I have reviewed and personally made and approve the management plan that is documented in the note by myself or the ALMAS. I acknowledge for responsibility for the patient's management plan. JOSSUE SARABIA May 23, 2025 01:31 JOCELIN WALKER MD May 23, 2025 03:51
[2025-05-23 04:19] VITALS: BP 125/66; PULSE 88; RESP 18; TEMP 98.5; O2SAT 99
--- NOTE | 2025-05-23 06:32 | EKG ---
[facility] Test Date: 2025-05-23 Test Time: 00:20:09 Pat Name: ISACC MORENO Department: [facility] Room: Gender: M [employer] Manager: [id number] : 1950 Requested By: JOCELIN WALKER Order Number: [id number] Reading MD: Michelle Walton Measurements Intervals [place] Rate: 75 P: 46 AK: 168 QRS: -51 QRSD: 89 T: 36 QT: 398 QTc: 441 Interpretive Statements Sinus rhythm Atrial premature complexes LAD, consider left anterior fascicular block No previous ECG available for comparison Electronically Signed On 05-23-2025 14:34:13 CDT by Michelle Walton Please click the below link to view image of tracing.
== END 2025-05-23 04:28 | disposition home or self-care (01) ==
LOC: EDH 00:09
DX: K21.9 Gastro-esophageal reflux disease without esophagitis (principal); E78.5 Hyperlipidemia, unspecified; I10 Essential (primary) hypertension; Z79.890 Hormone replacement therapy; Z79.899 Other long term (current) drug therapy; Z85.818 Personal history of malignant neoplasm of other sites of lip, oral cavity, and pharynx; Z85.89 Personal history of malignant neoplasm of other organs and systems
CPT/HCPCS: 99285; 71045; 82550; 84484 ×2; 80048; 85025; 81001; 36415; 93005; J7030

== ENCOUNTER → 2025-09-03 | Outpatient (CLI) | payer OTHER ==
[~2025-09-03] MED LIST changes: +DIATR MEGLU/DIATRIZOATE SODIUM 30 ML BOTTLE ONE
--- NOTE | 2025-09-03 21:40 | HMCIMG ---
EXAM: CR ABDOMEN, 1 VIEW CLINICAL HISTORY: Abdominal pain. COMPARISON: X ray abdomen February 21, 2025 TECHNIQUE: Single frontal radiograph of the abdomen. FINDINGS: Bowel gas pattern: Non-obstructive. Free air: Not assessed on a single supine view. Organomegaly: Not seen. Calcifications: No pathologic calcifications observed. Bones and soft tissues: Percutaneous gastrostomy tube tip in the distal body of the stomach. Contrast opacification of the stomach and the duodenum without evidence of contrast leak. Moderate amount of fecal material in the left colon. IMPRESSION: 1. Percutaneous gastrostomy tube tip in the distal body of the stomach. No evidence of contrast leak. 2. Compared to dated X ray abdomen dated February 21, 2025 , percutaneous gastrostomy tube tip appears stable since the prior examination. 3. Nonobstructive bowel gas pattern with moderate fecal material in the left colon. /[place]
== END | disposition home or self-care (01) ==
LOC: RAH 12:36
PROVIDERS: ATTEND Internal Medicine Gastroenterology
DX: K94.20 Gastrostomy complication, unspecified (principal); K56.41 Fecal impaction
CPT/HCPCS: 74018; Q9963